=== PATIENT | female | born 2000 | race Caucasian/White ===

== ENCOUNTER 2019-12-10 00:21 | Emergency (ER) | payer OTHER ==
[~2019-12-10] VITALS: Ht 157.5 cm; Wt 59.0 kg
[2019-12-10] MEDS ORDERED: LORAZEPAM INJ 2 MG/ML VIAL ONE (01:08)
--- NOTE | 2019-12-10 01:20 | NUR ---
1MG OF ATIVAN GIVEN TO PT, 1MG WASTED, WITNESSED BY BINA BRAGG
--- NOTE | 2019-12-10 01:22 | NUR ---
BIBPARENTS FOR LT EYE BLURRY VISION, BACK OF HEAD NUMBNESS, LT LEG PAIN/NUMBESS TO ER BED 7 VSS
[2019-12-10 01:26] LABS: BASOPHILS # (AUTO) 0.1 /CMM (0.0-0.2); BASOPHILS % (AUTO) 0.6 % (0.0-2.0); HEMATOCRIT 43 % (33-45); HEMOGLOBIN 14.4 g/dL (11.5-14.8); LYMPHOCYTES # (AUTO) 3.4 /CMM (0.8-4.8); LYMPHOCYTES % (AUTO) 38.1 % (20.0-44.0); MEAN CORPUSCULAR HGB CONC 33 g/dl (31.0-36.0); MEAN CORPUSCULAR VOLUME 92 fL (82-100); MONOCYTES # (AUTO) 0.5 /CMM (0.1-1.30); MONOCYTES % (AUTO) 5.7 % (2.0-12.0); NEUTROPHILS # (AUTO) 4.7 /CMM (1.8-8.9); NEUTROPHILS % (AUTO) 52.6 % (43.0-81.0); PLATELET COUNT (AUTO) 282 /CMM (150-450); RED BLOOD CELL COUNT(AUTO) 4.66 MIL/uL (4.0-5.2); WHITE BLOOD COUNT (AUTO) 8.9 K/uL (4.3-11.0)
[2019-12-10] MEDS ORDERED: IV NS 0.9% 1,000 ML BAG IV ONE (01:30)
[2019-12-10] MEDS ORDERED: LORAZEPAM INJ 2 MG/ML VIAL IV ONE (01:30)
[2019-12-10 01:56] LABS: CALCIUM, SERUM 9.9 mg/dL (8.5-10.1); CREATININE 0.7 mg/dL (0.6-1.3)
[2019-12-10 02:02] LABS: ALBUMIN 3.9 g/dL (3.4-5.0); BILIRUBIN,TOTAL 0.3 mg/dL (0.2-1.0)
--- NOTE | 2019-12-10 02:57 | NUR ---
Patient discharged to home in stable condition. Written and verbal after care instructions given. Patient verbalizes understanding of instruction.
[2019-12-10 02:58] VITALS: BP 127/72
== END 2019-12-10 02:58 | disposition home or self-care (01) ==
LOC: ER 00:26
DX: F41.9 Anxiety disorder, unspecified (principal)
CPT/HCPCS: 36415; 80048; 80076; 84702; 85025; 96374; 99283; J2060; J7030